=== PATIENT | female | born 1950 | race Caucasian/White ===

== ENCOUNTER → 2017-06-22 | Outpatient (CLI) | payer MEDICARE, OTHER ==
--- NOTE | 2017-06-22 10:29 | RAD ---
Pelvic ultrasound, 06/22/2017: History: Acute although vaginal right is Transabdominal and transvaginal scans were obtained. The uterus is surgically absent. The left ovary is reportedly surgically absent. The right ovary was not visualized. No pelvic mass or unusual fluid collection is seen. IMPRESSION: 1. Status post hysterectomy. 2. Negative pelvic ultrasound.
== END | disposition home or self-care (01) ==
LOC: US 09:34
PROVIDERS: ATTEND Obstetrics & Gynecology
DX: N76.0 Acute vaginitis (principal); N39.0 Urinary tract infection, site not specified; I30.8 Other forms of acute pericarditis; Z90.710 Acquired absence of both cervix and uterus
CPT/HCPCS: 76830; 76856

== ENCOUNTER → 2018-12-25 | Outpatient (CLI) | payer MEDICARE, OTHER ==
--- NOTE | 2018-12-25 13:48 | RAD ---
Examination: US PELVIS W/TV History: Abnormal findings on gynecologic exam. Partial hysterectomy. Comparison/Correlation: 06/22/2017 pelvic ultrasound exam Findings: Transabdominal and transvaginal pelvic ultrasound exam was performed. The urinary bladder is mostly decompressed. Hysterectomy noted. Ovaries are not identified. No pelvic free fluid. No pelvic mass. Impression: No suspicious process. Electronically signed by: Tino Maravilla MD (12/25/2018 1:45 PM) [facility]
== END | disposition home or self-care (01) ==
LOC: US 10:08
PROVIDERS: ATTEND Obstetrics & Gynecology
DX: Z01.411 Encounter for gynecological examination (general) (routine) with abnormal findings (principal); C55 Malignant neoplasm of uterus, part unspecified; Z90.710 Acquired absence of both cervix and uterus
CPT/HCPCS: 76830; 76856

== ENCOUNTER 2019-01-23 14:22 | Emergency (ER) | payer MEDICARE, OTHER ==
[~2019-01-23] VITALS: Ht 162.6 cm; Wt 83.5 kg
[2019-01-23 15:08] LABS: BASO % 0 % (0-3); EOS # 0.3 x10^3/uL (0.0-0.7); EOS % 5 % (0-3); LYMPH # 1.4 x10^3/uL (1.0-4.8); LYMPH % 21 % (24-48); MEAN CORPUSCULAR HEMOGLOBIN 32 pg (25-35); MEAN CORPUSCULAR HGB CONC 33 g/dL (31-37); MEAN CORPUSCULAR VOLUME 95 fL (79-100); MONO # 1.1 x10^3/uL (0.0-1.1); MONO % 17 % (0-9); NEUT # 3.7 x10^3uL (1.8-7.7); NEUT % 57 % (31-73); PLATELET COUNT 204 x10^3/uL (140-400); RED BLOOD COUNT 1.74 x10^6/uL (3.50-5.40); RED CELL DISTRIBUTION WIDTH 16.8 % (11.5-14.5); WHITE BLOOD COUNT 6.6 x10^3/uL (4.0-11.0)
[2019-01-23 15:14] LABS: HEMATOCRIT 16.5 % (36.0-47.0); HEMOGLOBIN 5.5 g/dL (12.0-15.5)
[2019-01-23 15:50] LABS: ALBUMIN 2.6 g/dL (3.4-5.0); CALCIUM 9.5 mg/dL (8.5-10.1); CREATININE 13.9 mg/dL (0.6-1.0); GFR 2.6; POTASSIUM 5.9 mmol/L (3.5-5.1); TOTAL BILIRUBIN 0.3 mg/dL (0.2-1.0)
[2019-01-23 15:54] LABS: ALBUMIN/GLOBULIN RATIO 0.2 (1.0-1.7); TOTAL PROTEIN 13.6 g/dL (6.4-8.2)
[2019-01-23 16:04] LABS: BILIRUBIN,URINE NEG (NEG); CLARITY,URINE CLOUDY; COLOR,URINE STRAW; GLUCOSE,URINE NEG (NEG); UROBILINOGEN,URINE 0.2 mg/dL (0.2 mg/dL)
[2019-01-23 16:05] LABS: BACTERIA,URINE MANY /HPF (0-FEW); NITRITE,URINE POS (NEG); SQUAMOUS EPITHELIAL CELL,UR OCC /LPF; WBC,URINE 20-40 /HPF (0-4)
[2019-01-23] MEDS ORDERED: SODIUM POLYSTYRENE SULFONATE 15 GM/60 ML ORAL.SUSP. PO ONE (16:30)
[2019-01-23] MEDS ORDERED: INSULIN REGULAR 100 UNIT/ML 3ML VIAL. IV ONE (16:30)
[2019-01-23] MEDS ORDERED: DEXTROSE 50% 25 GM / 50ML DISP.SYRIN. IV ONE (16:30)
--- NOTE | 2019-01-23 17:26 | PHYS DOC ---
Past History Past Medical History: Cancer, Diabetes, Renal Failure, Other Additional Past Medical Histor: MULTIPLE MYLOMA Past Surgical History: Cancer Surgery, Tonsillectomy, Other Additional Past Surgical Histo: CATARACT Alcohol Use: Rarely Drug Use: None Adult General Chief Complaint Chief Complaint: ABNORMAL LABS HPI HPI Patient is a 68-year-old female who presents with report of abnormal hemoglobin and hematocrit. Patient had blood work drawn per her die barber and after reviewing H&H, patient was told to come into the emergency room to be evaluated for transfusion. Patient does admit to generalized weakness that has been building up for quite some time. She was recently diagnosed with multiple myeloma and is getting ready to undergo treatment for the multiple myeloma. She denies any chest pain or shortness of breath.[] Review of Systems Review of Systems Constitutional: Denies fever or chills [] Respiratory: Denies cough or shortness of breath [] Cardiovascular: No additional information not addressed in HPI [] GI: Denies abdominal pain, nausea, vomiting or diarrhea [] Neurologic: Denies headache, focal weakness or sensory changes [] All other systems were reviewed and found to be within normal limits, except as documented in this note. Current Medications Current Medications Current Medications Medications (Trade) Dose Ordered Sig/Fe Start Time Stop Time Status Last Admin Dose Admin Dextrose (Dextrose 50%-Water Syringe) 25 gm 1X ONCE 01/23/19 16:30 01/23/19 16:31 DC 01/23/19 16:35 25 GM Insulin Human Regular (HumuLIN R VIAL) 10 unit 1X ONCE 01/23/19 16:30 01/23/19 16:31 DC 01/23/19 16:40 10 UNIT Sodium Polystyrene Sulfonate (Sps 15 Gm/60 ml Suspension) 15 gm 1X ONCE 01/23/19 16:30 01/23/19 16:31 DC 01/23/19 16:41 15 GM Allergies Allergies Allergies Coded Allergies Type Severity Reaction Last Updated Verified aspirin Allergy Unknown 01/23/19 Yes dapsone Allergy Unknown 01/23/19 Yes vancomycin Allergy Unknown 01/23/19 Yes Physical Exam Physical Exam Constitutional: Well developed, well nourished, no acute distress, non-toxic appearance. [] HENT: Normocephalic, atraumatic, bilateral external ears normal, oropharynx moist, no oral exudates, nose normal. [] Eyes: PERRLA, EOMI, conjunctiva pale, no discharge. [] Neck: Normal range of motion, no tenderness, supple. [] Cardiovascular: Regular rate and rhythm[] Lungs & Thorax: Bilateral breath sounds clear to auscultation [] Abdomen: Bowel sounds normal, soft, no tenderness. [] Skin: Warm, dry. [] Extremities: No tenderness, no cyanosis, no clubbing, ROM intact. [] Neurologic: Alert and oriented X 3, no focal deficits noted. [] Current Patient Data Vital Signs Vital Signs Date Time Temp Pulse Resp B/P (MAP) Pulse Ox O2 Delivery O2 Flow Rate FiO2 01/23/19 16:31 107 20 141/87 (105) 100 Room Air 01/23/19 14:30 97.6 Lab Results Laboratory Tests Test 01/23/19 14:46 01/23/19 15:08 White Blood Count 6.6 x10^3/uL (4.0-11.0) Red Blood Count 1.74 x10^6/uL (3.50-5.40) L Hemoglobin 5.5 g/dL (12.0-15.5) *L Hematocrit 16.5 % (36.0-47.0) *L Mean Corpuscular Volume 95 fL (79-100) Mean Corpuscular Hemoglobin 32 pg (25-35) Mean Corpuscular Hemoglobin Concent 33 g/dL (31-37) Red Cell Distribution Width 16.8 % (11.5-14.5) H Platelet Count 204 x10^3/uL (140-400) Neutrophils (%) (Auto) 57 % (31-73) Lymphocytes (%) (Auto) 21 % (24-48) L Monocytes (%) (Auto) 17 % (0-9) H Eosinophils (%) (Auto) 5 % (0-3) H Basophils (%) (Auto) 0 % (0-3) Neutrophils # (Auto) 3.7 x10^3uL (1.8-7.7) Lymphocytes # (Auto) 1.4 x10^3/uL (1.0-4.8) Monocytes # (Auto) 1.1 x10^3/uL (0.0-1.1) Eosinophils # (Auto) 0.3 x10^3/uL (0.0-0.7) Basophils # (Auto) 0.0 x10^3/uL (0.0-0.2) Sodium Level 132 mmol/L (136-145) L Potassium Level 5.9 mmol/L (3.5-5.1) H Chloride Level 100 mmol/L (98-107) Carbon Dioxide Level 15 mmol/L (21-32) L Anion Gap 17 (6-14) H Blood Urea Nitrogen 107 mg/dL (7-20) H Creatinine 13.9 mg/dL (0.6-1.0) H Estimated GFR (Cockcroft-Gault) 2.6 BUN/Creatinine Ratio 8 (6-20) Glucose Level 91 mg/dL (70-99) Calcium Level 9.5 mg/dL (8.5-10.1) Total Bilirubin 0.3 mg/dL (0.2-1.0) Aspartate Amino Transferase (AST) 17 U/L (15-37) Alanine Aminotransferase (ALT) 26 U/L (14-59) Alkaline Phosphatase 58 U/L (46-116) Total Protein 13.6 g/dL (6.4-8.2) H Albumin 2.6 g/dL (3.4-5.0) L Albumin/Globulin Ratio 0.2 (1.0-1.7) L Urine Collection Type Unknown Urine Color Straw Urine Clarity Cloudy Urine pH 5.0 Urine Specific Clyman 1.020 Urine Protein 100 mg/dl (NEG-TRACE) Urine Glucose (UA) Neg mg/dL (NEG) Urine Ketones (Stick) Neg mg/dL (NEG) Urine Blood Large (NEG) Urine Nitrite Pos (NEG) Urine Bilirubin Neg (NEG) Urine Urobilinogen Dipstick 0.2 mg/dL (0.2 mg/dL) Urine Leukocyte Esterase Mod (NEG) Urine RBC 3-5 /HPF (0-2) Urine WBC 20-40 /HPF (0-4) Urine Squamous Epithelial Cells Occ /LPF Urine Bacteria Many /HPF (0-FEW) EKG EKG [] Radiology/Procedures Radiology/Procedures [] Course & Med Decision Making Course & Med Decision Making Pertinent Labs and Imaging studies reviewed. (See chart for details) [] Dragon Disclaimer Dragon Disclaimer This electronic medical record was generated, in whole or in part, using a voice recognition dictation system. Departure Departure: Impression: Primary Impression: Symptomatic anemia Additional Impressions: Geyeh-[id number] kidney injury Metabolic acidosis Hyperkalemia Disposition: XF SHT-TRM HOSP Condition: IMPROVED Referrals: FABY TANG MD (PCP) Problem Qualifiers Additional Impressions: [id number] kidney injury Acute renal failure type: unspecified Chronic kidney disease stage: unspecified stage Qualified Codes: N17.9 - Acute kidney failure, unspe cified; N18.9 - Chronic kidney disease, unspecified RC ARENAS Jr. DO Jan 23, 2019 17:26
[2019-01-23] MEDS ORDERED: cefTRIAXone SODIUM 1 GM VIAL ONE (17:53)
[2019-01-23] MEDS ORDERED: IV NORMAL SALINE 50ML 50 ML ONE (17:53)
[2019-01-23 18:04] VITALS: BP 96/47
[2019-01-23 21:05] LABS: % BANDS 4 % (0-9); % EOS 3 % (0-5); % LYMPHS 21 % (24-48); % METAS 1 % (0-0); % MONOS 10 % (0-10); % SEGS 61 % (35-66)
[2019-01-23 21:06] LABS: PLT ESTIMATE ADEQUATE (ADEQUATE); ROULEAUX PRESENT
[2019-01-23 21:08] LABS: POLYCHROMASIA SLIGHT
== END 2019-01-23 18:20 | disposition short-term general hospital (02) ==
LOC: ER 14:31
DX: N17.9 Acute kidney failure, unspecified (principal); E11.22 Type 2 diabetes mellitus with diabetic chronic kidney disease; N18.9 Chronic kidney disease, unspecified; D64.89 Other specified anemias; E87.2 Acidosis; E87.5 Hyperkalemia; Z88.6 Allergy status to analgesic agent; Z88.1 Allergy status to other antibiotic agents; Z88.8 Allergy status to other drugs, medicaments and biological substances
CPT/HCPCS: 36415; 80053; 81001; 85007; 85025; 86850; 86900; 86901; 87086; 96365; 96375; 99285; J0696; J1815

== ENCOUNTER → 2020-04-07 | Outpatient (CLI) | payer MEDICARE, OTHER ==
[2020-04-07 16:13] LABS: BASO # 0.1 x10^3/uL (0.0-0.2); BASO % 1 % (0-3); EOS # 0.9 x10^3/uL (0.0-0.7); EOS % 12 % (0-3); HEMATOCRIT 38.6 % (36.0-47.0); HEMOGLOBIN 12.8 g/dL (12.0-15.5); LYMPH # 2.2 x10^3/uL (1.0-4.8); LYMPH % 29 % (24-48); MEAN CORPUSCULAR HEMOGLOBIN 33 pg (25-35); MEAN CORPUSCULAR HGB CONC 33 g/dL (31-37); MEAN CORPUSCULAR VOLUME 99 fL (79-100); MONO # 1.3 x10^3/uL (0.0-1.1); MONO % 18 % (0-9); NEUT % 40 % (31-73); PLATELET COUNT 240 x10^3/uL (140-400); RED BLOOD COUNT 3.92 x10^6/uL (3.50-5.40); RED CELL DISTRIBUTION WIDTH 14.8 % (11.5-14.5); WHITE BLOOD COUNT 7.5 x10^3/uL (4.0-11.0)
[2020-04-07 16:22] LABS: ALBUMIN 3.7 g/dL (3.4-5.0); ALBUMIN/GLOBULIN RATIO 0.9 (1.0-1.7); CALCIUM 8.6 mg/dL (8.5-10.1); CREATININE 8.8 mg/dL (0.6-1.0); GFR 4.5; POTASSIUM 4.2 mmol/L (3.5-5.1); TOTAL BILIRUBIN 0.6 mg/dL (0.2-1.0)
[2020-04-08 15:13] LABS: KAPPA FREE 464.1 mg/L (3.3-19.4); KAPPA LAMBDA RATIO 47.36 (0.26-1.65); LAMBDA FREE 9.8 mg/L (5.7-26.3)
[2020-04-08 19:09] LABS: ALBUM 3.9 g/dL (2.9-4.4); ALPHA 1 0.3 g/dL (0.0-0.4); ALPHA 2 0.6 g/dL (0.4-1.0); BETA 0.8 g/dL (0.7-1.3); GAMMA 1.8 g/dL (0.4-1.8); PROTEIN TOTAL 7.4 g/dL (6.0-8.5); SPEP AG RATIO 1.1 (0.7-1.7)
== END ==
LOC: LAB 15:37
PROVIDERS: ATTEND Internal Medicine Hematology & Oncology
DX: C90.02 Multiple myeloma in relapse (principal)
CPT/HCPCS: 36415; 80053; 83520; 84165; 85025

== ENCOUNTER → 2020-05-05 | Outpatient (CLI) | payer MEDICARE, OTHER ==
[2020-05-05 14:05] VITALS: BP 118/58
[2020-05-05 15:16] LABS: BASO # 0.1 x10^3/uL (0.0-0.2); BASO % 1 % (0-3); EOS # 0.8 x10^3/uL (0.0-0.7); EOS % 11 % (0-3); HEMATOCRIT 38.7 % (36.0-47.0); HEMOGLOBIN 12.8 g/dL (12.0-15.5); LYMPH # 1.6 x10^3/uL (1.0-4.8); LYMPH % 23 % (24-48); MEAN CORPUSCULAR HEMOGLOBIN 33 pg (25-35); MEAN CORPUSCULAR HGB CONC 33 g/dL (31-37); MEAN CORPUSCULAR VOLUME 102 fL (79-100); MONO # 1.2 x10^3/uL (0.0-1.1); MONO % 18 % (0-9); NEUT # 3.4 x10^3uL (1.8-7.7); NEUT % 48 % (31-73); PLATELET COUNT 240 x10^3/uL (140-400); RED BLOOD COUNT 3.81 x10^6/uL (3.50-5.40); RED CELL DISTRIBUTION WIDTH 15.3 % (11.5-14.5)
--- NOTE | 2020-05-05 15:43 | NUR ---
NSG NOTE; UNSUCCESSFUL PORT LAB DRAW PT HERE TO ROOM 109 AT 1400 VIA AMB ACCOMP BY SELF LEFT CHEST PORT ACCESSED WITH GOOD FLUSH BUT NO BLOOD RETURN. NEEDLE REPOSITIONED AND ASSESSED BY SECOND RN. STILL EASY FLUSH BUT NO BLOOD RETURN. PT PREFERRED TO HAVE LABS DRAWN PERIPHERALLY RATHER THAN WAIT FOR CATHFLOW ORDERS HER HAD AN APPOINTMENT IN ONE HOUR. DR MIMA YI'S OFFICE NOTIFIED THAT PT'S PORT HAD NO BLOOD RETURN. LAB RESULTS TO BE FAXED TO THEIR OFFICE
[2020-05-05 16:37] LABS: ALBUMIN 3.4 g/dL (3.4-5.0); ALBUMIN/GLOBULIN RATIO 0.8 (1.0-1.7); CALCIUM 8.6 mg/dL (8.5-10.1); CREATININE 9.8 mg/dL (0.6-1.0); GFR 3.9; POTASSIUM 4.8 mmol/L (3.5-5.1); TOTAL BILIRUBIN 0.5 mg/dL (0.2-1.0); TOTAL PROTEIN 7.8 g/dL (6.4-8.2)
[2020-05-07 11:13] LABS: ALBUM 3.9 g/dL (2.9-4.4); ALPHA 1 0.2 g/dL (0.0-0.4); ALPHA 2 0.7 g/dL (0.4-1.0); BETA 0.8 g/dL (0.7-1.3); PROTEIN TOTAL 7.6 g/dL (6.0-8.5); SPEP AG RATIO 1.1 (0.7-1.7)
[2020-05-08 06:07] LABS: KAPPA FREE 628.5 mg/L (3.3-19.4); KAPPA LAMBDA RATIO 59.29 (0.26-1.65); LAMBDA FREE 10.6 mg/L (5.7-26.3)
== END | disposition home or self-care (01) ==
LOC: OPINF 13:51
PROVIDERS: ATTEND Internal Medicine Hematology & Oncology
DX: C92.02 Acute myeloblastic leukemia, in relapse (principal)
CPT/HCPCS: 36415; 80053; 83520; 84165; 85025; 96523

== ENCOUNTER 2021-02-02 19:29 | Emergency (ER) | payer MEDICARE, OTHER ==
[~2021-02-02] VITALS: Ht 152.4 cm; Wt 70.0 kg
[2021-02-02] MEDS ORDERED: LIDOCAINE 2%/EPI 1:100,000 20 ML VIAL. ONE (19:52)
--- NOTE | 2021-02-02 19:53 | PHYS DOC ---
Past History Past Medical History: Cancer, Diabetes, Renal Failure, Other Additional Past Medical Histor: MULTIPLE MYLOMA, dialysis MWF Past Surgical History: Cancer Surgery, Tonsillectomy, Other Additional Past Surgical Histo: CATARACT Alcohol Use: None Drug Use: None General Adult EDM: Chief Complaint: DIALYSIS PROBLEM HPI: HPI: ".. I am bleeding at my dialysis cath area...":... This happed once before...".. " They tried to stop it there .. but it is still squirting.. and soaking the dressing... " Patient is a 70 year old femal who presents with bleeding from hemodialysis site. Appeared to be bleeding from both venous port and arterial port. The lateral site for access. To have a small tear and direct pressure was not allowing troll of bleeding. Patient is not on any current anticoagulation even with her dialysis. Review of Systems: Review of Systems: Constitutional: Denies fever or chills Eyes: Denies change in visual acuity HENT: Denies nasal congestion or sore throat Respiratory: Denies cough or shortness of breath Cardiovascular: Denies chest pain or edema GI: Denies abdominal pain, nausea, vomiting, bloody stools or diarrhea : Denies dysuria Musculoskeletal: Denies back pain or joint pain Integument: Denies rash. Complains of bleeding from dialysis ports Neurologic: Denies headache, focal weakness or sensory changes Endocrine: Denies polyuria or polydipsia Lymphatic: Denies swollen glands Psychiatric: Denies depression or anxiety Family History: Family History: Noncontributory to presentation Current Medications: Current Meds: See nursing for home meds Allergies: Allergies: Allergies Coded Allergies Type Severity Reaction Last Updated Verified aspirin Allergy Unknown 01/23/19 Yes dapsone Allergy Unknown 01/23/19 Yes diphenhydramine Allergy Unknown 02/02/21 Yes vancomycin Allergy Unknown 01/23/19 Yes Physical Exam: PE: Constitutional: Moderate o acute distress, non-toxic appearance. [] HENT: Normocephalic, atraumatic, bilateral external ears normal, oropharynx moist, no oral exudates, nose normal. [] Eyes: PERRLA, EOMI, conjunctiva normal, no discharge. [] Neck: Normal range of motion, no tenderness, supple, no stridor. [] Cardiovascular: Tachycardia heart rate, regular rhythm, no murmur [] monitor shows a sinus rhythm. Lungs & Thorax: Bilateral breath sounds equal apex with scattered wheezes on auscultation [] Abdomen: Bowel sounds normal, soft, no tenderness, no masses, no pulsatile masses. Obese Skin: Warm, dry, no erythema, no rash. [] Active bleeding from dialysis site. Lateral needle puncture appears to be somewhat enlarged and torn. Back: No tenderness, no CVA tenderness. [] Extremities: No tenderness, no cyanosis, no clubbing, ROM intact, lateral leg edema. [] Dialysis site has good thrill. Neurologic: Alert and oriented X 3, normal motor function, normal sensory function, no focal deficits noted. [] Psychologic: Affect anxious, judgement normal, mood normal. [] Current Patient Data: Vital Signs: Vital Signs Date Time Temp Pulse Resp B/P (MAP) Pulse Ox O2 Delivery O2 Flow Rate FiO2 02/02/21 19:37 98.0 90 18 138/82 (100) 98 Room Air EKG: EKG: [] Radiology/Procedures: Radiology/Procedures: [] Heart Score: C/O Chest Pain: N/A Risk Factors: Risk Factors: DM, Current or recent (<one month) smoker, HTN, HLP, family history of CAD, obesity. Risk Scores: Score 0 - 3: 2.5% MACE over next 6 weeks - Discharge Home Score 4 - 6: 20.3% MACE over next 6 weeks - Admit for Clinical Observation Score 7 - 10: 72.7% MACE over next 6 weeks - Early Invasive Strategies Course & Med Decision Making: Course & Med Decision Making Pertinent Labs and Imaging studies reviewed. (See chart for details) Procedure note-oversew with suture to control bleeding from dialysis site- Patient site cleaned with peroxide and then Betadine prep, Injected area of of dialysis site with 2% lidocaine epi. Then used a pursestring suture with 3-0 Ethilon to the skin over the AV graft site. Over sewn the active bleeding site. Area to observe for some time afterwards for recurrence of bleeding. Clean area again with Betadine. Then applied Gelfoam to both sites. 4 x 4 dressing and wrap applied. Distal neurovascular still intact and foot. Equal to left foot. Patient again monitored for additional 30 minutes with no reactivation of bleeding. Patient leave dressing in tact until follow-up with dialysis. If she does have rebleed to apply direct pressure to site. At this not controlled the bleeding present again to the emergency department. Once initial dressing removed apply Polysporin 4 times a day. Follow-up primary care. Ethilon sutures to be removed in 7 days. Sutures-simple x12 Impression: 1. Bleeding from dialysis site. 2. History of multiple myeloma 3. History of renal failure [] Dragon Disclaimer: Dragzev Disclaimer: This electronic medical record was generated, in whole or in part, using a voice recognition dictation system. Departure Departure: Referrals: BERKLEY GIBBONS (PCP) Ernesto Disclaimer This chart was dictated in whole or in part using Voice Recognition software in a busy, high-work load, and often noisy Emergency Department environment. It may contain unintended and wholly unrecognized errors or omissions. LAURA BURRELL MD Feb 02, 2021 19:53
[2021-02-02] MEDS ORDERED: GELATIN SPONGE SIZE 12-7MM SPONGE. ONE (19:59)
[2021-02-02] MEDS ORDERED: LIDOCAINE 2%/EPI 1:100,000 20 ML VIAL. IJ ONE (20:00)
[2021-02-02] MEDS ORDERED: GELATIN SPONGE SIZE 12-7MM SPONGE. TP ONE (20:00)
[2021-02-02 21:04] VITALS: BP 125/66
== END 2021-02-02 21:04 | disposition home or self-care (01) ==
LOC: ER 19:29
DX: T82.838A Hemorrhage due to vascular prosthetic devices, implants and grafts, initial encounter (principal); E11.22 Type 2 diabetes mellitus with diabetic chronic kidney disease; N18.9 Chronic kidney disease, unspecified; Z99.2 Dependence on renal dialysis; Z85.79 Personal history of other malignant neoplasms of lymphoid, hematopoietic and related tissues; Z88.6 Allergy status to analgesic agent; Z88.1 Allergy status to other antibiotic agents; Z88.8 Allergy status to other drugs, medicaments and biological substances
CPT/HCPCS: 99282; 99283